=== PATIENT | female | born 1955 | race Caucasian/White ===

== ENCOUNTER → 2016-10-05 | Outpatient (CLI) | payer MEDICAID | LOC: FLAB 10:01 | PROVIDERS: ATTEND Internal Medicine | DX: J18.9 Pneumonia, unspecified organism (principal) ==

== ENCOUNTER → 2017-03-16 | Outpatient (CLI) | payer MEDICAID ==
--- NOTE | 2017-03-16 14:12 | CPEKG ---
Heart Rate: 70 RR Interval: 857 P-R Interval: 152 QRSD Interval: 86 QT Interval: 404 QTC Interval: 436 P [place]: 76 QRS [place]: 74 T Wave [place]: 53 EKG Severity - NORMAL ECG - EKG Impression: SINUS RHYTHM EKG Impression: COMPARED WITH 01/03/2017 NO SIG CHANGE Electronically Signed By: Elida Mills 16-Mar-2017 17:15:32
== END ==
LOC: FIMAGING 15:40
PROVIDERS: ATTEND Internal Medicine Infectious Disease
DX: R91.1 Solitary pulmonary nodule (principal); B38.2 Pulmonary coccidioidomycosis, unspecified; Z79.2 Long term (current) use of antibiotics

== ENCOUNTER 2017-08-02 05:55 | Inpatient (IN) | payer MEDICAID ==
--- NOTE | 2017-07-21 17:45 | GHP ---
[f rep st] HISTORY AND PHYSICAL DATE OF ADMISSION: 08/02/2017 ADMITTING DIAGNOSES: 1. Postmenopausal bleeding with thickened endometrial lining. 2. Uterine leiomyomata. HISTORY OF PRESENT ILLNESS: The patient is a 62-year-old 6, para 3 female, who has been postmenopausal for the last 10 years. She presented from her PCP's office for evaluation and treatment of postmenopausal bleeding. Patient states she has been on Xarelto secondary to atrial fibrillation for the past 7 months. She noted 24 hours of bright red bleeding on a [place] pad at the end of March and went into the emergency room where labs appeared to be normal and pelvic ultrasound was done. She was then told to follow up with [facility]. Patient had stopped Xarelto for 48 hours, and then restarted. Patient states no further bleeding at this time and since the end of March. She does note intermittent, mild cramping and increased urinary frequency. She has not been sexually active for the last 10 years. On pelvic exam, there was moderate atrophy noted and a stenotic, atrophic cervix, no active bleeding. A pelvic ultrasound revealed an enlarged uterus with multiple fibroids; the largest fibroid is pushing the endometrium to the right, and measures 9 x 8 x 8 cm; the endometrium is thickened at 2.07 cm with 1 cystic area measuring 0.9 cm ; the ovaries are not seen due to enlarged uterus fibroids; and no free fluid is seen. An endometrial biopsy was unable to be performed in the office secondary to atrophic, stenotic cervix. Discussed the importance of sampling the lining of the endometrium to rule out hyperplasia or malignancy secondary to her postmenopausal bleeding and thickened lining of 2 cm. She desires to have definitive treatment at this time and desires a hysterectomy with removal of her ovaries. Discussed first proceeding with a D&C with frozen pathology and if path is benign, will proceed with a hysterectomy, BSO. She currently has finished 6 month treatment with Diflucan for valley fever and is doing well. She is stable on sotalol for paroxysmal atrial fibrillation and Cardiology does not recommend an ablation at this time and is cleared for surgery. They recommended continuing the sotalol but increased it to 80 mg three times daily for suppression of paroxsymal atrial fibrillation. She is to continue that prior to surgery and throughout surgery and continue Xarelto for CVA prophylaxis; to hold Xarelto 3 days prior to surgery. Patient is to get blood work done today. PAST CHILDCARE ATTENDANT HISTORY: Spontaneous vaginal delivery x3, uncomplicated. SAB x3. Patient denies a history of abnormal Pap smears or any exposure to sexually transmitted diseases. PAST MEDICAL HISTORY: Paroxysmal atrial fibrillation, hypertension, anxiety, syncope, pneumonia, pulmonary coccidioidomycosis. SURGICAL HISTORY: Breast augmentation/breast surgery in 1983, shoulder surgery second to bone spur in 1985. MEDICATIONS: Sotalol 80 mg three times daily, Xarelto 20 mg at bedtime, multivitamin, Ativan 0.25 daily as needed. ALLERGIES: Digoxin, diltiazem, penicillin. FAMILY HISTORY: Unremarkable. SOCIAL HISTORY: The patient is single and lives by herself. 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 Denies any illicit drug use or tobacco use. REVIEW OF SYSTEMS: 10-point review of systems is negative, pertinent positives noted in HPI. LABORATORY DATA: H and H 14.3 and 41.8. STUDIES: Pelvic ultrasound as noted above. PHYSICAL EXAMINATION: VITAL SIGNS: On admission, are stable. Patient is afebrile. GENERAL: Well-nourished well-developed female, alert and oriented x3. No apparent distress. CARDIOVASCULAR: Regular rate and rhythm. LUNGS: Clear to auscultation bilaterally. ABDOMEN: Soft, nontender, nondistended. PELVIC: Bimanual exam reveals enlarged uterus, 10-12 week size, mobile, nontender, irregular shaped. No adnexal masses noted. EXTREMITIES: Normal to inspection without calf tenderness or swelling. ASSESSMENT AND PLAN: Patient is a 62-year-old 6, para 3, with postmenopausal bleeding and thickened lining on ultrasound, as well as uterine leiomyomata. 1. Reviewed procedure, dilation and curettage with frozen pathology to rule out hyperplasia or malignancy, and if pathology is benign, will proceed with total laparoscopic hysterectomy and bilateral salpingo-oophorectomy. We discussed its limitations, nothing by mouth status, and postoperative recovery. 2. Surgical consents were obtained. Discussed risks, benefits, and alternatives including, but not limited to, bleeding, infection, uterine perforation, and damage to surrounding organs including bowel, bladder, and ureters. 3. Patient understands all risks of the surgery and wants to proceed. 4. Antibiotics tank car reconditioner to operating room. 5. Sequential compression devices for deep vein thrombosis prophylaxis. /[id number]/MODL MTDD
[2017-08-02] MEDS ORDERED: CLINDAMYCIN 900 MG/DEXTROSE 50 ML IV ONE (06:11)
[2017-08-02] MEDS ORDERED: SOTALOL HCL 80 MG TAB PO SCH (06:11)
[2017-08-02] MEDS ORDERED: LR 1,000 ML IV ONE (06:13)
[2017-08-02] MEDS ORDERED: BUPIVACAINE 0.5% 30 ML SDV ONE (06:52)
--- NOTE | 2017-08-02 07:08 | PDHPUP ---
History & Physical Update H&P update statement: This history and physical update is based on an assessment of the patient which was completed after admission or registration (within 24 hours), but prior to the surgery/procedure. H&P update: H&P reviewed & patient examined, no change in patient's condition since H&P completed
--- NOTE | 2017-08-02 07:09 | PDANEPAE ---
ANE History of Present Illness h/o dysfunctional bleeding here for TAHBSO ANE Past Medical History - Cardiovascular History Hx Hypertension: Yes Hx Arrhythmias: Yes Hx Chest Pain: No Hx Coronary Artery / Peripheral Vascular Disease: No Hx CHF / Valvular Disease: No Hx Palpitations: No Cardiovascular History Comment: A-FIB CAUSED BY VALLEY FEVER 08/2016 - Pulmonary History Hx COPD: No Hx Asthma/Reactive Airway Disease: No Hx Recent Upper Respiratory Infection: Yes Hx Oxygen in Use at Home: No Hx Sleep Apnea: No Sleep Apnea Screening Result - Last Documented: Negative Pulmonary History Comment: PULM COCCIDIOIDOMYCOSIS/VALLEY FEVER 08/2016 FINISHED MEDICATION 05/18/2017 - Neurologic History Hx Cerebrovascular Accident: No Hx Seizures: No Hx Dementia: No - Endocrine History Hx Diabetes: No - Renal History Hx Renal Disorders: Yes Renal History Comment: 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 RT SHLDR REMVL BONE SPUR ANE Review of Systems Review of Systems: - Exercise capacity METS (RN): 4 METS ANE Patient History - Allergies Allergies/Adverse Reactions: digoxin Allergy (Verified 07/12/17 14:28) Hives diltiazem Allergy (Verified 07/12/17 14:28) Hives - Home Medications Home Medications: LORazepam [Ativan (*)] 0.25 mg PO DAILY PRN 01/24/13 [Last Taken 08/01/17] Multivitamins [Multivitamin (*)] 1 each PO DAILY 07/12/17 [Last Taken 07/26/17] Rivaroxaban [Xarelto 10mg (*)] 20 mg PO HS 07/12/17 [Last Taken 07/29/17] Sotalol HCl [Betapace 80 MG (*)] 80 mg PO TID@06,14,07/12/17 [Last Taken 12/12] - NPO status NPO Status: no food or drink >8 hours NPO Since - Liquids (Date): 08/02/17 NPO Since - Liquids (Time): 05:45 NPO Since - Solids (Date): 08/01/17 - Anes Hx Anes Hx: no prior problems, awareness under anesthesia - Smoking Hx Smoking Status: Former smoker - Alcohol Use Alcohol Use: None - Family Anes Hx Family Anes Hx: none ANE Labs/Vital Signs - Vital Signs Blood Pressure: 138/76 Heart Rate: 63 Respiratory Rate: 16 O2 Sat (%): 95 Height: 176.53 cm Weight: 86.183 kg ANE Physical Exam - Airway Neck exam: decreased ROM Mallampati Score: Class 3 Mouth exam: normal dental/mouth exam - Pulmonary Pulmonary: no respiratory distress, clear to auscultation - Cardiovascular Cardiovascular: regular rate and rhythym, no murmur, rub, or gallop - ASA Status ASA Status: III ANE Anesthesia Plan Anesthesia Plan: general endotracheal anesthesia
[2017-08-02] MEDS ORDERED: MIDAZOLAM 2 MG/2 ML VIAL IVP ONE (07:13)
[2017-08-02] MEDS ORDERED: fentaNYL 100 MCG/2 ML INJ ONE ×3 (07:23→13:23)
[2017-08-02] MEDS ORDERED: PROPOFOL 200 MG/20 ML VIAL ONE (07:23)
[2017-08-02] MEDS ORDERED: ROCURONIUM 50 MG/5 ML VIAL ONE (07:25)
[2017-08-02] MEDS ORDERED: LIDOCAINE 2% 100 MG/5 ML SYR ONE (07:25)
[2017-08-02] MEDS ORDERED: METHYLENE BLUE 0.5% 50 MG/10 ML AMP ONE (08:53)
[2017-08-02] MEDS ORDERED: ALBUMIN 5% 250 ML BOTTLE IV ONE (10:13)
[2017-08-02] MEDS ORDERED: MIDAZOLAM 2 MG/2 ML VIAL ONE (10:15)
--- NOTE | 2017-08-02 13:09 | POSTOPPROG ---
Post Op Note Date of Operation: 08/02/17 Surgeon: Flori Medrano Software Engineer Web Services: Marie Lao Anesthesiologist: Marino Blunt Anesthesia: GET(General Endotracheal) Pre-op Diagnosis: PMB; Symptomatic uterine leiomyomata Post-op Diagnosis: PMB; Symptomatic uterine leiomyomata Indication: 62 y/o with PMB, ill-defined lining; symptomatic uterine fibroids Procedure: D&C; TLH-BSO; Cystoscopy Findings: Enlarged uterus sounded 11-12 cm with multiple fibroids; stenotic cervix Inf/Abcess present in the surg proc area at time of surgery?: No Depth: Organ Space EBL: Greater than 1000 (2800 cc) Total fluids administered: 4000 L LR, 500cc Albumin, 1unit PRBCs UO: 200 cc clear Complications: None Specimen(s): Endometrial curettings-frozen path revealed no hyperplasia or malignancy; Uterus , cervix, tubes and ovaries b/l
[2017-08-02] MEDS ORDERED: BISACODYL 10 MG SUPP PR PRN (13:15)
[2017-08-02] MEDS ORDERED: POLYETHYLENE GLYCOL 3350 17 GM PKT PO PRN (13:15)
[2017-08-02] MEDS ORDERED: LACTULOSE 20 GM/30 ML UDCUP PO PRN (13:15)
[2017-08-02] MEDS ORDERED: MAGNESIUM HYDROXIDE 30 ML UDCUP PO PRN (13:15)
[2017-08-02] MEDS ORDERED: ONDANSETRON 4 MG/2 ML VIAL IVP PRN (13:18)
[2017-08-02] MEDS ORDERED: NALOXONE HCL 0.4 MG/ML INJ IVP PRN (13:18)
[2017-08-02] MEDS ORDERED: ACETAMINOPHEN 500 MG TAB PO PRN (13:18)
[2017-08-02] MEDS ORDERED: PROMETHAZINE HCL 25 MG/ML INJ IVP PRN (13:18)
[2017-08-02] MEDS ORDERED: HYDROCODONE/APAP 5/325 TAB PO PRN (13:18)
[2017-08-02] MEDS ORDERED: oxyCODONE IR 5 MG TAB PO PRN (13:18)
--- NOTE | 2017-08-02 13:19 | POSTANESTH ---
Post Anesthetic Evaluation Cardiovascular Status: Normal, Stable, Similar to Pre-Op Cond Respiratory Status: Normal, Stable, Similar to Pre-op Cond. Level of Consciousness/Mental Status: Can Participate in Eval, Alert and Oriented Pain Control: Adequate, Prn Tx Ordered Nausea/Vomiting Control: Adequate, Prn Tx Ordered Complications Possibly Related to Anesthesia: None Noted
[2017-08-02] MEDS ORDERED: HYDROmorphONE/DILAUDID 2 MG/ML INJ ONE (13:23)
[2017-08-02] MEDS: HYDROmorphONE/DILAUDID 2 MG/ML INJ IVP PRN ×7 (13:25→14:37)
[2017-08-02] MEDS: fentaNYL 100 MCG/2 ML INJ IVP PRN ×3 (13:25→13:52)
[2017-08-02] MEDS ORDERED: HYDROmorphONE/DILAUDID 2 MG/ML INJ IVP PRN (13:35)
[2017-08-02] MEDS ORDERED: ACETAMINOPHEN 500 MG TAB ONE (14:03)
[2017-08-02] MEDS ORDERED: oxyCODONE IR 5 MG TAB ONE (14:03)
[2017-08-02] MEDS: SOTALOL HCL 80 MG TAB PO SCH ×3 (15:29→22:30)
[2017-08-02] MEDS: SENNOSIDES/DOCUSATE SODIUM TAB PO SCH ×2 (17:17→21:48)
[2017-08-02] MEDS: LR 1,000 ML IV SCH (17:37)
--- NOTE | 2017-08-02 18:23 | SOAPPROG ---
SOAP Progress Note Assessment/Plan: Assessment: 1) s/p D&C, TLH-BSO, cystoscopy secondary to PMB and symptomatic uterine fibroids POD #0 - pt is stable 2) Anemia - large blood loss during surgery requiring transfusion 3) Paroxysmal A-fib - on Sotalol TID, Xarelto on hold for now 4) Numbess, weakness in L upper extremity - probably temporary and due to pinched nerve Plan: Continue routine post-op care Pt on tele, cont Sotalol TID while in hospital Will consult with Cardio-Dr. Knott re: restarting Xarelto H/H in am, if pt is symptomatic t/c another 1 unit SCDs while in bed IS while awake 08/02/17 18:25 Subjective: Pt seen and examined. She is c/o L shoulder, arm and hand numbness and weakness. Also notes some swelling in L hand. Pain is 6/10, has not received any pain meds while on the floor. She is finding it difficult to take deep breaths with the pain. She feels dizzy laying in bed. Denies any f/c/n/v/CP or SOB. Minimal spotting noted on pad. Kolb in place. Demetrius clears. Objective: Vital Signs Temp Pulse Resp BP Pulse Ox 36.4 C 72 12 143/77 H 99 08/02/17 17:16 08/02/17 17:16 08/02/17 17:16 08/02/17 17:16 08/02/17 17:16 08/01/17 08/02/17 08/03/17 05:59 05:59 05:59 Intake Total 5250 Output Total 3050 Balance 2200 Physical Exam - Physical Exam General Appearance: WD/WN, alert, no apparent distress Respiratory: lungs clear, normal breath sounds Cardiac/Chest: regular rate, rhythm Abdomen: soft, distended (mild), other (appropriate tenderness; Laparoscopic incisions x 4 - C/D/I, well approximated with glue) Pelvic Exam: deferred Skin: warm/dry, pallor Extremities: non-tender, normal inspection (+SCDs) Neuro/Psych: alert, normal mood/affect, oriented x 3 ICD10 Worksheet Patient Problems: Problems Problem Status Onset Anemia Acute PMB (postmenopausal bleeding) Acute Uterine fibroid Acute - ICD10 Problem Qualifiers (1) PMB (postmenopausal bleeding) (2) Uterine fibroid Qualifiers: Qualified Code(s): D25.9 - Leiomyoma of uterus, unspecified (3) Anemia
--- NOTE | 2017-08-02 20:45 | GOP ---
[f rep st] OPERATIVE REPORT DATE OF OPERATION: 08/02/2017 SURGEON: Flori Medrano DO BAND BIAS MACHINE OPERATOR: Marie Lao MD. ANESTHESIA: General endotracheal. ANESTHESIOLOGIST: Marino Blunt MD. PREOPERATIVE DIAGNOSIS: 1. Postmenopausal bleeding. 2. Symptomatic uterine fibroids. POSTOPERATIVE DIAGNOSIS: 1. Postmenopausal bleeding. 2. Symptomatic uterine fibroid. PROCEDURE PERFORMED: Dilation and curettage, total laparoscopic hysterectomy, bilateral salpingo-oophorectomy and cystoscopy. FINDINGS: An enlarged uterus that sounded to 11-12 cm with multiple fibroids. There was a 3-4 cm pedunculated fibroid on L side of lower uterine as well as a very large intramural fibroids 7-8 cm. Grossly normal-appearing tubes bilaterally and ovaries bilaterally. The cervix was noted to be stenotic. Upper abdomen grossly normal appearing as well as appendix. SPECIMENS: Endometrial curettings with frozen pathology revealing no hyperplasia, malignancy; Uterus, cervix, bilateral tubes and ovaries. ESTIMATED BLOOD LOSS: 1800 cc. INDICATIONS: The patient is a 62-year-old 6, para 3, with postmenopausal bleeding for 2 days at the end of March. An ultrasound showed an ill-defined lining, with enlarged uterus with multiple fibroids. The patient is currently on Xarelto for paroxysmal atrial fibrillation and patient does have symptomatic uterine fibroids with pressure, pelvic discomfort and urinary complaints, mostly frequency. We discussed first proceeding with a D and C in the operating room because the endometrial biopsy could not be done in the office secondary to cervical stenosis. Then we discussed if frozen pathology was negative for hyperplasia or malignancy, we would proceed with a total laparoscopic hysterectomy and removal of tubes and ovaries. Discussed limitations of the procedure as well as risks, benefits, alternatives, including , but not limited to, bleeding, infection, damage to surrounding organs, and risk of a large incision. The patient understands all risks at this time and wants to proceed with surgery. Patient was properly consented. DESCRIPTION OF PROCEDURE: The patient taken to the operating room where general anesthesia was obtained with some difficulty secondary to a difficult airway. The patient was then placed in dorsal lithotomy position, prepped and draped in the usual sterile manner. Kolb catheter was placed in her bladder. After a WHO time-out was performed, an open-sided speculum was placed in the patient's vagina. The anterior lip of the cervix was grasped with an Allis clamp and the cervix was then dilated up to an 8 Hegar starting with 0.5, and this was done without difficulty. The uterus was then sounded to 11-12 cm and a sharp curette was then used in all 4 quadrants of the uterus. Minimal tissue was obtained and this was sent to pathology. Pathologist called stating the path was negative for any hyperplasia or malignancy and okay to proceed with a hysterectomy. At this time, we used a small size cup for the MCKAYLA manipulator and a size 10 tip for the MCKAYLA manipulator. This was put together and then was gently advanced up to the cervix to provide a means to manipulate the uterus. All instruments were then removed from the vagina. We then turned our attention to the patient's abdomen. The infraumbilical area was injected with 0.5% plain Marcaine and a 5 mm infraumbilical skin incision was made with a knife. The Veress needle was then inserted carefully while tenting the abdominal wall. Aspiration was negative. Abdomen was then insufflated with carbon dioxide. The Veress needle was then removed and a trocar was then placed with the attached laparoscope, and we were able to enter peritoneal cavity under direct visualization without difficulty. After placing more local, a 10 mm skin incision was then made in the right lower quadrant and a 5 mm skin incision made in the left lower quadrant. Atraumatic trocars were then placed under direct visualization without difficulty. The patient was placed in Trendelenburg position. Pelvic structures were visualized. Pelvic findings as noted above. At this time, the infundibulopelvic ligament on the left side was grasped with an atraumatic grasper and then using the LigaSure, the IP ligament was cauterized multiple times and transected. The round ligament was then grasped, coagulated with the LigaSure multiple times and transected. Hemostasis was noted. This dissection was then carried to the anterior and posterior leaves of broad ligament, which were and a bladder flap was created anteriorly. There was some difficulty here secondary to a large pedunculated fibroid which distorted anatomy as to where uterine vessels were located. We cauterize what appeared to be the uterine vessels multiple times. These were transected with the LigaSure and hemostasis was visualized at this time. We also incorporated cardinal and uterosacral ligaments, which were cauterized and transected with the LigaSure. We then turned our attention to the right side. In a similar fashion, the right IP ligament was grasped, cauterized using LigaSure multiple times and transected. We worked our way to the anterior and posterior leaves of the broad ligament which were and then a bladder flap created anteriorly to meet dissection on the other side. The uterine vessels were better visualized on this side. They were cauterized multiple times, transected with LigaSure. Hemostasis was noted. The cardinal and uterosacral ligaments were then cauterized and transected with the LigaSure. At this time, all pedicles did appear hemostatic. Attention was then turned to the colpotomy. This was done using the hook. We started anteriorly, and was able to do this circumferentially. There was active bleeding noted on the left side near the posterior cuff. These vessels were not completely cauterized secondary to lack of visualization from the pedunculated fibroid. The active bleeding was unable to be stopped with the 3 ports, so at this time, a 4th port was made. A 5 mm skin incision was made just adjacent to the umbilicus to the left side, the trocar was placed under direct visualization. Using suction, as well as using 2 graspers, we were able to see exactly where the active bleeding was coming from the posterior cuff and this area was cauterized multiple times with less active bleeding noted. The colpotomy was finally completed. Attention was then turned to the vagina where the specimen was unable to be removed intact secondary to the large size of the uterus with multiple fibroids. The cervix was grasped with single tooth tenaculum and the uterus was morselized with multiple fragments of the intramural fibroid removed. This was done until the uterus,tubes and ovaries were able to be removed through the vagina. All specimens sent to Pathology. A sponge glove was then placed in the vagina in order to maintain pneumoperitoneum. We then went back up to visualize the vaginal cuff laparoscopically. There was noted to be bleeding at the posterior cuff on the left side. This area was cauterized with the LigaSure multiple times and then 2 surgical clips were placed and hemostasis was finally achieved. Then, using a running 0 Vicryl V- Loc suture, vaginal cuff was closed left to right. Hemostasis was noted. The pelvis was then irrigated with copious amounts of normal saline. There was slight oozing noted over the cuff so Linn was placed on the vaginal cuff as well as all pedicles to achieve further hemostasis. The ureters were visualized bilaterally and peristalsis was noted. We did however proceed with a cystoscopy. At this time, Kolb catheter was removed. A 30 degree cystoscope was placed gently up into the urethra, and passed into the bladder which was distended using normal saline. The dome of the bladder was visualized as well as bilateral ureteral orifices with spillage of methylene blue seen bilaterally. Cystoscope was then removed. A new Kolb catheter was placed to allow the bladder to drain. The 10 mm fascial incision was closed with the fascial device using 0 Vicryl. Hemostasis noted. The other trocar sleeves were then removed under visualization. All gas was allowed to escape from the abdomen. The skin incisions were then closed with Dermabond. The patient did receive a unit of blood as well as 500 cc Albumin and fluids to keep blood pressures stable secondary to excessive blood loss. All instrument, sponge, and needle counts correct x2. The patient was then taken out of dorsal lithotomy position, awakened, and taken to recovery room in stable condition. IV FLUIDS: 4000 cc LR, 500 cc albumin. URINE OUTPUT: 200 cc of clear urine at the end of the procedure. /[id number]/MODL MTDD
[2017-08-02] MEDS: HYDROCODONE/APAP 5/325 TAB PO PRN (23:26)
[2017-08-03] MEDS: HYDROCODONE/APAP 5/325 TAB PO PRN ×2 (02:23→12:06)
[2017-08-03] MEDS: LR 1,000 ML IV SCH (02:56)
--- NOTE | 2017-08-03 04:54 | CPEKG ---
Heart Rate: 59 RR Interval: 1017 P-R Interval: 152 QRSD Interval: 92 QT Interval: 424 QTC Interval: 420 P [place]: 77 QRS [place]: 65 T Wave [place]: 63 EKG Severity - BORDERLINE ECG - EKG Impression: SINUS RHYTHM Electronically Signed By: Anurag Alves 03-Aug-2017 12:45:14
[2017-08-03] MEDS: LORazepam 0.5 MG TAB PO PRN ×2 (05:25→20:52)
[2017-08-03] MEDS: SOTALOL HCL 80 MG TAB PO SCH ×3 (07:24→21:47)
[2017-08-03] MEDS: SENNOSIDES/DOCUSATE SODIUM TAB PO SCH ×2 (08:22→21:00)
[2017-08-03] MEDS: SIMETHICONE 80 MG TAB CHEW PO SCH ×4 (08:23→21:01)
[2017-08-03] MEDS: ACETAMINOPHEN 500 MG TAB PO PRN ×3 (08:23→23:08)
--- NOTE | 2017-08-03 08:23 | SOAPPROG ---
SOAP Progress Note Assessment/Plan: Assessment: 1) s/p D&C, TLH-BSO, cystoscopy secondary to PMB and symptomatic uterine fibroids POD #1 - pt is stable 2) Symptomatic Anemia - excessive blood loss during surgery 3) Paroxysmal A-fib - on Sotalol TID, Xarelto on hold for now 4) Numbess, weakness in L upper extremity - improving Plan: Will plan on transfusing 2 units PRBCs secondary to symptomatic anemia; H/H 10/15 Will check H/H 6 hours after transfusion; if no improvement will check CT scan and look for internal bleeding VSS, afebrile; good urine output Inadequate pain control-patient wants to try ES Tylenol only Simethicone for gas prn Pt on tele, cont Sotalol TID while in hospital Will consult with Cardio-Dr. Knott re: restarting Xarelto SCDs while in bed Strongly encouraged pt to use IS today, suspect atelectasis Will hold off on removing young this am until after transfusion 08/03/17 08:25 Subjective: Pt seen and examined. She did not sleep at all last night, she had difficulties taking deep breaths with the pain. She felt short of breath. She had [place] x 1 at 2230 and again at 0230-pain not well controlled. This am at 5-6 while laying still and up to 8/10 with any movement. She is arlin clears, broth and half a sandwich without any n/v. She was up last nigh at the side of the bed and felt dizzy and attempted to stand up and almost passed out. She has belched twice, but no flatus yet. Denies any f/c/CP. Denies any calf tenderness. Minimal spotting noted on pad. Numbness and weakness in L upper extremity has improved. Objective: Vital Signs Temp Pulse Resp BP Pulse Ox 37.0 C 77 17 133/79 H 91 L 08/03/17 08:00 08/03/17 08:00 08/03/17 08:00 08/03/17 08:00 08/03/17 08:00 Laboratory Results 08/03/17 05:10 08/02/17 08/03/17 08/04/17 05:59 05:59 05:59 Intake Total 7175 Output Total 4700 Balance 2475 Physical Exam - Physical Exam General Appearance: WD/WN, alert, no apparent distress Respiratory: lungs clear, normal breath sounds (diminished breath sounds) Cardiac/Chest: regular rate, rhythm Abdomen: normal bowel sounds (hypo bowel sounds), soft, distended, other ( diffuse tenderness) Pelvic Exam: deferred Skin: warm/dry, pallor Extremities: non-tender, normal inspection (with SCDs) Neuro/Psych: alert, normal mood/affect, oriented x 3 ICD10 Worksheet Patient Problems: Problems Problem Status Onset Anemia Acute PMB (postmenopausal bleeding) Acute Uterine fibroid Acute - ICD10 Problem Qualifiers (1) PMB (postmenopausal bleeding) (2) Uterine fibroid Qualifiers: Qualified Code(s): D25.9 - Leiomyoma of uterus, unspecified (3) Anemia
--- NOTE | 2017-08-03 15:35 | PDMN ---
Medical Necessity Medical necessity: Change to IP, as of 08/03/17, per DO; los >2 mn for ongoing management of symptomatic anemia, AFIB & LUE numbness/weakness s/p D&C, total hysterectomy, bilateral oophorectomy & cystoscopy; admit for further workup/ monitoring, blood transfusion, Cardiology/Hospitalist consults, pain management & IVFs; hx AFIB, HTN, pneumonia, syncope & pulmonary coccidioidomycosis; per progress note & order 08/03/17
--- NOTE | 2017-08-03 16:36 | GCON ---
[f rep st] CONSULTATION MEDICINE CONSULTATION DATE OF CONSULTATION: 08/03/2017 REASON FOR CONSULTATION: The patient is a 62-year-old female who was admitted by her primary gynecol ogist for hysterectomy and bilateral salpingo-oophorectomy in the setting of postmenopausal bleeding and uterine fibroids. Her surgery was complicated by excessive bleeding with estimated blood loss of 1800 cc. She does have a history of atrial fibrillation. Her Xarelto had been on hold for 5 days p rior to surgery. Medicine consultation was requested regarding management of atrial fibrillation and anticoagulation in the setting of perioperative bleeding. HISTORY OF PRESENT ILLNESS: Please see dictated History and Physical dated July 21, 2017, by Dr. Vance. In brief, the patient is a 62-year-old, 6, para 3, who has been followed by [facility] for the past 10 years for postmenopausal bleeding. This may be hastened by her chronic Xarelto use f or atrial fibrillation. She underwent a hysterectomy and bilateral salpingo-oophorectomy by Dr. Tamar moss yesterday and is postop day 1. As above, she had significant blood loss perioperatively and her h emoglobin was 7.6 this morning. Note, her baseline hemoglobin is around 14.5. She is currently rece iving her second unit of blood. She is saturating 1 pad per shift. She does complain of significant abdominal pain, though she is using only Tylenol for pain control postoperatively. She has been hem odynamically stable, but she states that when she gets up from a seated position, she feels that she has brief episodes of atrial fibrillation with a more rapid heart rate. Upon sitting down and restin g, her heart rate returns to the 70s or 80s, and she appears to be in sinus rhythm on the monitor dur ing my interview. She has had no hypotension. She denies chest pain or shortness of breath. She michel s been continued on her sotalol for rate control and her Xarelto continues to be held. PAST MEDICAL HISTORY: 1. Paroxysmal atrial fibrillation. 2. Chronic anticoagulation on Xarelto. 3. Hypertension. 4. Anxiety. 5. History of pulmonary coccidioidomycosis. PAST SURGICAL HISTORY: Breast augmentation surgery in 1983, shoulder surgery secondary to bone spur in 1985. MEDICATIONS: Please see [facility] for completed outpatient medication list. ALLERGIES: Digoxin and diltiazem. FAMILY HISTORY: Reviewed and noncontributory. SOCIAL HISTORY: The patient is single. She lives independently. Her daughter is present at the bed side. She has a history of alcohol dependence, though has been sober for 25 years. She denies any t obacco or illicit drug use. REVIEW OF SYSTEMS: A 10-point review of systems was performed and is negative except as per HPI. OBJECTIVE: VITAL SIGNS: Temperature 37.2, blood pressure 136/69, heart rate 87, respiratory rate 17 , she is 90% on room air. GENERAL: Patient is awake, alert, oriented, in no distress. HEENT: Head is atraumatic, normocephalic. Pupils equal, round, react to light. Extraocular movement intact. O ropharynx clear. Mucous membranes moist. NECK: Supple. There is no JVD. HEART: Regular rate and rhythm. LUNGS: Atelectatic crackles at the bases with decreased air exchange, otherwise clear to a uscultation. ABDOMEN: Soft with mild to moderate distention and tenderness to palpation diffusely. There is no rigidity, guarding or peritoneal signs. EXTREMITIES: Without cyanosis, clubbing, or ed louise. NEUROLOGIC: Grossly nonfocal. She moves all 4 extremities. Strength is symmetric. LABORATORY DATA: Postop hemoglobin 7.6. She had a repeat hemoglobin drawn during her blood transfus ion, which was 9.5, and I suspect this is not accurate. ASSESSMENT AND PLAN: The patient is a 62-year-old female who was admitted for hysterectomy and bilat eral salpingo-oophorectomy in the setting of postmenopausal bleeding and uterine fibroids. 1. Status post total laparoscopic hysterectomy, bilateral salpingo-oophorectomy, dilation, curettage , and cystoscopy. Postoperative day #1. Her surgery was complicated by excessive blood loss. She w ishes to try pain control with Tylenol only, though she does have as-needed Vicodin and Dilaudid avai lable. Bowel regimen is also ordered. She is tolerating a diet and passing gas. Further postop man agement per the Gynecology service. 2. Acute blood loss anemia. She is currently receiving her second unit of packed red blood cells. She is hemodynamically stable. I do not see evidence of ongoing active bleeding, though should her h emodynamics change or her hemoglobin drift down, consider CT abdomen and pelvis to rule out internal bleeding. 3. Paroxysmal atrial fibrillation. Her CHADS-VASc score is 2, which gives her 2.8% annual stroke ri sk. We will continue her sotalol for rate control. I will hold her Xarelto for now, since she is st ill within the window of 24 hours from her surgery and there was concern for possible ongoing blood l oss. We will consider resuming this tomorrow if she remains stable. Continue telemetry monitoring. 4. Deep venous thrombosis prophylaxis: Sequential compression devices. Pharmacologic is deferred d ue to her recent blood loss. 5. Code status: Patient is full code. 6. Disposition. The patient is admitted to inpatient status. Medicine will continue to follow abraham ng her hospitalization. 7. Thank you for this consultation. Please do not hesitate to contact us with any further questions or concerns. /[id number]/MODL
--- NOTE | 2017-08-03 17:34 | ASMTCMCOM ---
CM Note CM Note Notes: Pt. is a 62-year-old woman admitted for hysterectomy due to significant post menapausal bleeding. Surgery was complicated by excessive bleeding. Pt. has a daughter who is present. Pt. lives alone. Hx. anxiety and has been sober from ETOH for some 25 years per chart. Anticipate independent d/c when ready. Date Signed: 08/03/2017 05:33 PM Electronically Signed By:Kathi Beach LCSW
[2017-08-04] MEDS: SOTALOL HCL 80 MG TAB PO SCH ×2 (05:54→14:04)
--- NOTE | 2017-08-04 08:18 | SOAPPROG ---
SOAP Progress Note Assessment/Plan: Assessment: 1) s/p D&C, TLH-BSO, cystoscopy secondary to PMB and symptomatic uterine fibroids POD #2 - pt is stable 2) Anemia - s/p 2 units PRBCs 3) Paroxysmal A-fib - on Sotalol TID, Xarelto on hold for now 4) Numbess, weakness in L upper extremity - resolved Plan: H/H this am 12/21; vss stable and good UO-doubt any internal bleeding at this time Pt was in A-fib last night, not surprising with stress of surgery and excessive blood loss; cont Sotalol, t/c starting Xarelto today Pain controlled with ES Tylenol, only received [place] x 1 Will remove young and IV this am, monitor output Encourage ambulation and monitor for any dizziness If pt does well, plan for d/c later this evening since her daughter has to work until 1800 Discussed iron x 3 months as well as stool softener 08/04/17 08:12 Subjective: Patient seen and examined. She is feeling much better, pain is well controlled with ES Tylenol. She was in A-Fib last night for about 2-3 hours and was seen by hospitalist. Denies any SOB or CP. Pt has not been up ambulating yet, only to chair; arlin regular diet without any n/v; young in place; passing flatus. Pad filled with old brown blood, but not changed overnight. She is happy since she is feeling much better and looking forward to going home. Objective: Vital Signs Temp Pulse Resp BP Pulse Ox 37.3 C 81 18 153/85 H 92 08/04/17 08:00 08/04/17 08:00 08/04/17 08:00 08/04/17 08:00 08/04/17 08:00 Laboratory Results 08/04/17 05:03 08/03/17 08/04/17 08/05/17 05:59 05:59 05:59 Intake Total 7175 1950 Output Total 4700 4700 Balance 2475 -8590 Physical Exam - Physical Exam General Appearance: WD/WN, alert, no apparent distress Respiratory: lungs clear, normal breath sounds Cardiac/Chest: regular rate, rhythm Abdomen: normal bowel sounds, non-tender (Appropriate tenderness post-op), soft , distended (mild), other (Laparoscopic incisions x 4- C/D/I with glue, well approximated; some ecchymosis) Pelvic Exam: deferred Skin: normal color, warm/dry Extremities: non-tender, normal inspection Neuro/Psych: alert, normal mood/affect, oriented x 3 ICD10 Worksheet Patient Problems: Problems Problem Status Onset Anemia Acute PMB (postmenopausal bleeding) Acute Uterine fibroid Acute - ICD10 Problem Qualifiers (1) PMB (postmenopausal bleeding) (2) Uterine fibroid Qualifiers: Qualified Code(s): D25.9 - Leiomyoma of uterus, unspecified (3) Anemia
[2017-08-04] MEDS: SIMETHICONE 80 MG TAB CHEW PO SCH ×3 (09:19→18:17)
[2017-08-04] MEDS: SENNOSIDES/DOCUSATE SODIUM TAB PO SCH (09:19)
[2017-08-04] MEDS: ACETAMINOPHEN 500 MG TAB PO PRN (09:19)
--- NOTE | 2017-08-04 11:11 | HOSPPROG ---
Hospitalist Progress Note Assessment/Plan: S/P TL-BSO - POD #2, doing well. Pain controlled. Likely home this afternoon. ABLA - hgb stable after 2 u prbc's, no e/o ongoing bleeding. Paroxysmal A fib - Currently in sinus. Rate controlled on Sotalol, cont current dose. If ok with [employer] surgery, I think she can resume her Xarelto today. Full code Dispo - cont inpt, possible d/c today per [employer] Subjective: Pt doing much better. Pain controlled. Minimal bleeding. No CP, SOB or palpitations. Afebrile, taking po, good uop. Objective: Vital Signs Temp Pulse Resp BP Pulse Ox 37.3 C 81 18 153/85 H 92 08/04/17 08:00 08/04/17 08:00 08/04/17 08:00 08/04/17 08:00 08/04/17 08:00 Laboratory Results 08/04/17 05:03 08/03/17 08/04/17 08/05/17 05:59 05:59 05:59 Intake Total 7158 1950 Output Total 4700 4700 Balance 2475 -2750 - Physical Exam Constitutional: no apparent distress Eyes: PERRL Ears, Nose, Mouth, Throat: moist mucous membranes Cardiovascular: regular rate and rhythym, no murmur, rub, or gallop Respiratory: no respiratory distress, clear to auscultation Gastrointestinal: normoactive bowel sounds, soft, non-tender abdomen Skin: warm Musculoskeletal: full muscle strength Neurologic: AAOx3 Psychiatric: interacting appropriately ICD10 Worksheet Patient Problems: Problems Problem Status Onset Anemia Acute PMB (postmenopausal bleeding) Acute Uterine fibroid Acute
[2017-08-04] MEDS ORDERED: RIVAROXABAN 10 MG TAB PO SCH (11:15)
[2017-08-04] MEDS ORDERED: RIVAROXABAN 20 MG TAB PO SCH ×3 (11:45→18:00)
[2017-08-04 15:44] VITALS: BP 142/73
--- NOTE | 2017-08-09 13:41 | GDS ---
[f rep st] DISCHARGE SUMMARY ADMITTING DIAGNOSES: Postmenopausal bleeding, symptomatic uterine fibroids. DISCHARGE DIAGNOSES: Postmenopausal bleeding, symptomatic uterine fibroids, and anemia secondary to excessive blood loss. PROCEDURES: Dilation and curettage, total laparoscopic hysterectomy, bilateral salpingo-oophorectomy, and cystoscopy. HISTORY OF PRESENT ILLNESS: Patient is a 62-year-old 6, para 3, with postmenopausal bleeding for 2 days at the end of March. Ultrasound showed an ill-defined lining with enlarged uterus and multiple fibroids. Patient is currently on Xarelto for paroxysmal atrial fibrillation. Patient does have symptomatic uterine fibroids with pressure, pelvic discomfort, urinary complaints, mostly frequency. We discussed first proceeding with a D and C in the operating room because endometrial biopsy could not be done in the office secondary to cervical stenosis. Then we discussed if frozen pathology is negative for hyperplasia or malignancy, would proceed with a total laparoscopic hysterectomy, removal of tubes and ovaries. We discussed the limitations of procedure, as well as risks, benefits, alternatives including, but not limited to, bleeding, infection, damage to surrounding organs, and risk of large incision. Patient understands all risks at this time and wants to proceed with surgery. Patient was properly consented at this time. PHYSICAL EXAM: VITAL SIGNS: Stable, patient is afebrile. HEART: Regular rate and rhythm. LUNGS: Clear to auscultation. ABDOMEN: Soft, nondistended, nontender. Bowel sounds present. PELVIC: Bimanual exam: Enlarged uterus to 12 week size, irregular shaped, mobile, nontender. No adnexal masses appreciated. LABORATORY DATA: Postoperatively, H and H were 7.6 and 22.5. She received 2 units of packed red blood cells. Following day after transfusion, H and H 9.9 and 27.7. HOSPITAL COURSE: Patient was admitted for a 2-night stay to med/surg floor with telemetry for postoperative observation. On postoperative day 1, patient had difficulty taking a breath secondary to pain. Pain was not adequately controlled. She was tolerating a clear diet without nausea and vomiting. She was unable to sit up at the side of the bed secondary to dizziness. She belched twice, but no flatus. Patient is hemodynamically stable. Xarelto is being held. She has SCDs for deep vein thrombosis. She received 2 units packed red blood cells. Extra-strength Tylenol was ordered for pain, as well as simethicone for gas pain. The hospitalist was consulted regarding severe anemia post-op and patient's history of paroxysmal atrial fibrillation. On Postoperative day 2, patient is doing much better. Pain is well controlled and she is passing gas. She was in atrial fibrillation during the night for about 2 -3 hours, seen by hospitalist. Patient is up walking around, tolerating a regular diet, urinating without difficulty with minimal bleeding. Xarelto was restarted without any bleeding issues. Patient was stable and discharged home on day 2. DISCHARGE MEDICATIONS: Include Tylenol Extra Strength 1-2 p.o. q.6 hours as needed, sotalol 80 mg three times daily, Xarelto, ferrous sulfate 325 mg p.o. twice daily, and Colace 100 mg p.o. twice daily. DISCHARGE INSTRUCTIONS: We discussed pelvic rest, nothing in the vagina including sex, tampons, or douching for 6 weeks. No swimming, hot tubs, or tub baths. We also discussed lifting restrictions, nothing heavier than 20 pounds. Do not soak incisions; they are closed with glue and will fall off in 1-2 weeks. Activity as tolerated. FOLLOWUP CARE: Patient is to return to [facility] in 2 weeks for an incision check and postop appointment. /[id number]/MODL MTDD
== END 2017-08-04 19:23 | disposition home or self-care (01) | DRG 519 ==
LOC: F3E 05:55 → OBSVTOIN 13:21 → FOB 15:18 → F3E 17:03
PROVIDERS: ADMIT Obstetrics & Gynecology; ATTEND Obstetrics & Gynecology
PROC: 0UDB7ZX Extraction of Endometrium, Via Natural or Artificial Opening, Diagnostic (ICD-10-PCS; principal; 2017-08-02 07:30)
PROC: 0UT74ZZ Resection of Bilateral Fallopian Tubes, Percutaneous Endoscopic Approach (ICD-10-PCS; principal; 2017-08-02 07:30)
PROC: 0UT24ZZ Resection of Bilateral Ovaries, Percutaneous Endoscopic Approach (ICD-10-PCS; principal; 2017-08-02 07:30)
PROC: 0UT94ZZ Resection of Uterus, Percutaneous Endoscopic Approach (ICD-10-PCS; principal; 2017-08-02 07:30)
DX: D25.1 Intramural leiomyoma of uterus (principal); N84.0 Polyp of corpus uteri; D62 Acute posthemorrhagic anemia; I48.0 Paroxysmal atrial fibrillation; Z79.01 Long term (current) use of anticoagulants; I10 Essential (primary) hypertension; F41.9 Anxiety disorder, unspecified; R20.0 Anesthesia of skin
CPT/HCPCS: J1170; J2001; J2250; J2704; J3010; P9016; P9041; Q9968

== ENCOUNTER → 2017-08-24 | Outpatient (CLI) | payer MEDICAID | LOC: FIMAGING 14:48 | PROVIDERS: ATTEND Internal Medicine Infectious Disease | DX: R91.1 Solitary pulmonary nodule (principal); Z86.19 Personal history of other infectious and parasitic diseases ==